=== PATIENT | female | born 1950 | race Caucasian/White ===

== ENCOUNTER 2021-07-22 07:28 | Observation (INO) ==
[~2021-07-22 07:28] MED LIST: Buffered Lidocaine 1% SYRIN 1 ml INTRADERM ONE; Dexamethasone IV 4 MG/ML VIAL 1 ml VIAL IV SLOW PU ONE; Famotidine IV 10 MG/ML 2 ml VIAL (20 mg) IV ONE; Lactated Ringers 1000 ml BAG 1,000 ML IV SCH
[2021-07-22] MEDS ORDERED: Dexamethasone IV 4 MG/ML VIAL 1 ml VIAL ONE ×2 (07:48→11:05)
[2021-07-22] MEDS ORDERED: ceFAZolin 2 GM PREMIX 2 GM/50 ML BAG ONE (07:49)
[2021-07-22] MEDS ORDERED: Famotidine IV 10 MG/ML 2 ml VIAL (20 mg) ONE (07:49)
[2021-07-22] MEDS ORDERED: fentaNYL 100 mcg/2 ml 50 MCG/ML VIAL ONE ×2 (09:46→13:09)
[2021-07-22] MEDS ORDERED: Midazolam 2 mg/2 ml VIAL 1 mg/ml 2 ml VIAL (2 mg) ONE (09:46)
[2021-07-22] MEDS ORDERED: Phenylephrine IV 10 MG/ML 1 ml VIAL ONE (09:47)
[2021-07-22] MEDS ORDERED: Lidocaine 2% PF 5 ML VIAL ONE (09:47)
[2021-07-22] MEDS ORDERED: Ondansetron 4 mg VIAL 2 MG/ML 2 ml VIAL ONE (11:05)
[2021-07-22] MEDS ORDERED: diPHENhydraMINE 25 mg TAB PO PRN (11:10)
[2021-07-22] MEDS ORDERED: Lactulose 30 ml UDC PO PRN (11:10)
[2021-07-22] MEDS ORDERED: Magnesium Hydroxide LIQ 30 ML UDC PO PRN (11:10)
[2021-07-22] MEDS ORDERED: diPHENhydraMINE IV 50 MG/ML 1 ml VIAL (BENADRYL) IV PRN (11:10)
[2021-07-22] MEDS ORDERED: Prochlorperazine 5 mg/ml 2 ml VIAL (10 mg) IV PRN ×2 (11:18→13:02)
[2021-07-22] MEDS ORDERED: Acetaminophen IV 1 GM/100ML 100 ML IV ONE (12:14)
[2021-07-22] MEDS ORDERED: Morphine 4 MG/ML VIAL (1 ml) IV PRN (13:02)
[2021-07-22] MEDS ORDERED: Naloxone 0.4 mg VIAL 0.4 mg/ml 1 ml VIAL IV PRN (13:02)
[2021-07-22] MEDS ORDERED: fentaNYL 100 mcg/2 ml 50 MCG/ML VIAL IV PRN (13:02)
[2021-07-22] MEDS: Lactated Ringers 1000 ml BAG 1,000 ML IV SCH (14:48)
[2021-07-22] MEDS: ceFAZolin 1 GM ADVAN 1 GM in NS 0.9% 50 ML 50 ML IVPB SCH (18:02)
[2021-07-22] MEDS ORDERED: PTO: Progesterone 100 mg CAP (NF) PO SCH (21:00)
[2021-07-22] MEDS ORDERED: ESTRADIOL 0.5 MG PO SCH (21:00)
[2021-07-22] MEDS: Magnesium Hydroxide LIQ 30 ML UDC PO SCH (21:15)
[2021-07-23] MEDS: ceFAZolin 1 GM ADVAN 1 GM in NS 0.9% 50 ML 50 ML IVPB SCH ×2 (02:22→10:02)
[2021-07-23] MEDS: Lactated Ringers 1000 ml BAG 1,000 ML IV SCH (02:23)
[2021-07-23 05:16] LABS: Hematocrit 29 % (35-47); Hemoglobin 10.1 g/dL (12.0-16.0); Mean Platelet Volume 8.9 fL (7.4-10.4); Platelet Count 148 10^3/uL (150-450)
[2021-07-23 05:36] LABS: Calcium 8.2 mg/dL (8.6-10.3); Potassium 4.3 mmol/L (3.5-5.0); eGFR CKD-EPI 92.5 (>60)
[2021-07-23] MEDS: Magnesium Hydroxide LIQ 30 ML UDC PO SCH (08:11)
[2021-07-23] MEDS ORDERED: Vitamin THERAPEUTIC TAB PO SCH (09:00)
[2021-07-23 11:30] VITALS: BP 100/62
== END 2021-07-23 13:25 | disposition home or self-care (01) ==
LOC: OR 07:28 → SSU 07:28 → EDSTATUS 09:15
PROVIDERS: ADMIT Orthopaedic Surgery Adult Reconstructive Orthopaedic Surgery; ATTEND Orthopaedic Surgery Adult Reconstructive Orthopaedic Surgery